=== PATIENT | female | born 2000 | race Caucasian/White ===

== ENCOUNTER 2022-10-19 23:44 | Emergency (ER) | payer OTHER ==
[2022-10-19 23:49] VITALS: BP 114/78; PULSE 97; RESP 18; TEMP 97.7; BMI 32.9
[2022-10-20] MEDS ORDERED: FLUCONAZOLE 150 MG TABLET PO ONE ×2 (00:29→00:39)
[2022-10-20 00:57] LABS: EPI CELLS >36 /uL (0-25.1); HYALINE CASTS 6 /uL (0-3.1); URINE APPEARANCE CLOUDY; URINE BACTERIA 1436 /uL (0-1359); URINE BILIRUBIN NEGATIVE (NEGATIVE); URINE COLOR YELLOW; URINE GLUCOSE (UA) NEGATIVE (NEGATIVE); URINE KETONE TRACE (NEGATIVE); URINE LEUK ESTERASE 2+ (NEGATIVE); URINE NITRITE NEGATIVE (NEGATIVE); URINE PROTEIN TRACE (NEGATIVE); URINE RBC 18 /uL (0-23.9); URINE WBC 196 /uL (0-25.8)
[2022-10-20 04:01] LABS: YEAST MODERATE (NEGATIVE)
== END 2022-10-20 00:40 | disposition home or self-care (01) ==
LOC: JER 23:44
DX: B37.31 Acute candidiasis of vulva and vagina (principal)
CPT/HCPCS: 81003; 84703; 87077; 87086; 99283-25